=== PATIENT | male | born 1955 | race American Indian/Alaskan Native ===

== ENCOUNTER 2019-04-10 08:43 | Day surgery (SDC) | payer BC, MEDICARE ==
[~2019-04-10] VITALS: Ht 172.7 cm; Wt 90.9 kg
[~2019-04-10 08:43] MED LIST: ALBU90OI INH; AMLO5 PO; Albuterol2.5 MG/0.5 INH; FOLI1 PO; FOLI400 PO; FURO40 PO; Ferrous Sulfat325 M2 PO; Flonase 0.05% N16 GM; GLIP5 PO; Klor-Con 1010 MEQ PO; METF500 PO; METO25 PO; NYST100000 SS; PANT20 PO; POTCHL10ER PO; SODCHL1 PO; Senna Plus Tab1 EACH PO; TRAM50 PO
--- NOTE | 2019-04-10 12:01 | NUR ---
04/10/19 1201 Eva Pineda INSTRUCTIONS GIVEN REUSABLE ICE PACK W/INSTRUCTIONS. DSG C/D/I AND PT TRANSFERS TO AND FROM OWN W/C WITH SBA
== END 2019-04-10 10:55 | disposition home or self-care (01) ==
LOC: ORSCSDS 08:43
PROVIDERS: Podiatrist Foot & Ankle Surgery
PROC: 0HBMXZX Excision of Right Foot Skin, External Approach, Diagnostic (ICD-10-PCS; principal; 2019-04-10 10:00)
DX: D23.71 Other benign neoplasm of skin of right lower limb, including hip (principal); I10 Essential (primary) hypertension; I50.9 Heart failure, unspecified; J44.9 Chronic obstructive pulmonary disease, unspecified; Z87.891 Personal history of nicotine dependence; E11.9 Type 2 diabetes mellitus without complications; Z79.899 Other long term (current) drug therapy
CPT/HCPCS: 82947; 88305; J0690; J2250; J2405; J2704; J3010

== ENCOUNTER → 2020-12-29 | Outpatient (CLI) | payer OTHER ==
[2020-12-29 16:10] LABS: Alanine Aminotransfer (ALT/SGP 42 U/L (12-78); Albumin, Blood 3.2 g/dL (3.4-5.0); Albumin/Globulin Ratio 0.8 (0.8-1.8); Alk Phos 128 U/L (50-136); Anion Gap 6 mmol/L (6-16); Aspartate Aminotrans (AST/SGOT 35 U/L (12-37); Bilirubin, Total 0.5 mg/dL (0.1-1.0); Blood Urea Nitrogen 14 mg/dL (8-24); Bun/Creatinine Ratio 24.1 (12.0-20.0); CO2, Blood 29 mmol/L (21-32); Calcium, Blood 9.5 mg/dL (8.5-10.1); Chloride, Blood 96 mmol/L (98-108); Creatinine, Blood 0.58 mg/dL (0.60-1.20); Globulin, Blood 4.2 g/dL (2.2-4.0); Glomerular Filtration Rate >60 (60-); Glucose, Blood 366 mg/dL (70-99); Potassium, Blood 3.4 mmol/L (3.5-5.5); Sodium, Blood 131 mmol/L (136-145); Total Protein, Blood 7.4 g/dL (6.4-8.2)
== END | disposition home or self-care (01) ==
LOC: LAB 10:25 → LAB SHORT 10:25
PROVIDERS: Family Medicine
DX: E11.9 Type 2 diabetes mellitus without complications (principal)
CPT/HCPCS: 80053; 83036

== ENCOUNTER 2022-08-16 11:53 | Emergency (ER) | payer OTHER ==
[~2022-08-16] VITALS: Ht 172.7 cm; Wt 99.8 kg
[2022-08-16 13:11] LABS: BASOPHILS ABSOLUTE AUTO 0.09 K/mm3 (0.00-0.23); BASOPHILS PERCENT AUTO 1 % (0-2); EOSINOPHILS ABSOLUTE AUTO 1.51 K/mm3 (0.00-0.68); EOSINOPHILS PERCENT AUTO 11 % (0-6); Hematocrit 27.2 % (37.0-53.0); Hemoglobin 7.8 g/dL (13.5-17.5); IMMATURE GRAN ABSOLUTE AUTO 0.07 K/mm3 (0.00-0.10); IMMATURE GRAN PERCENT AUTO 1 % (0-1); LYMPHOCYTES ABSOLUTE AUTO 1.41 K/mm3 (0.84-5.20); LYMPHOCYTES PERCENT AUTO 11 % (21-46); MONOCYTES ABSOLUTE AUTO 1.12 K/mm3 (0.16-1.47); MONOCYTES PERCENT AUTO 8 % (4-13); Mean Corpuscular HGB Conc 28.7 g/dL (31.5-36.5); Mean Corpuscular Volume 73 fL (80-100); Mean Platelet Volume 8.9 fL (9.1-12.4); NEUTROPHILS ABSOLUTE AUTO 9.17 K/mm3 (1.96-9.15); NEUTROPHILS PERCENT AUTO 69 % (41-73); Platelet Count 347 K/mm3 (150-400); RDW Coefficient Variation 17.7 % (11.7-14.2); RDW Standard Deviation 46.8 fL (35.1-46.3); Red Blood Cell Count 3.72 M/mm3 (4.30-5.90); White Blood Cell Count 13.37 K/mm3 (4.00-11.30)
[2022-08-16 13:15] LABS: Albumin, Blood 2.3 g/dL (3.4-5.0); Albumin/Globulin Ratio 0.6 (0.8-1.8); Bilirubin, Total 0.3 mg/dL (0.1-1.0); Bun/Creatinine Ratio 12.2 (12.0-20.0); Calcium, Blood 8.1 mg/dL (8.5-10.1); Creatinine, Blood 0.58 mg/dL (0.60-1.20); Globulin, Blood 3.7 g/dL (2.2-4.0); Magnesium, Blood 1.8 mg/dL (1.6-2.4); Percent Saturation 7.7 % (20.0-50.0); Potassium, Blood 4.2 mmol/L (3.5-5.5)
== END 2022-08-16 18:26 | disposition home or self-care (01) ==
LOC: ER 11:53
PROVIDERS: Physician Assistant
DX: D50.9 Iron deficiency anemia, unspecified (principal); E11.9 Type 2 diabetes mellitus without complications; Z88.5 Allergy status to narcotic agent; Z79.899 Other long term (current) drug therapy; Z79.84 Long term (current) use of oral hypoglycemic drugs; Z87.891 Personal history of nicotine dependence
CPT/HCPCS: 36415; 80053; 82728; 83540; 83550; 83690; 83735; 85025; J2916

== ENCOUNTER 2023-03-12 20:45 | Inpatient (IN) | payer OTHER ==
[~2023-03-12] VITALS: Ht 172.7 cm; Wt 95.0 kg
[2023-03-12 21:43] LABS: BASOPHILS ABSOLUTE AUTO 0.06 K/mm3 (0.00-0.23); BASOPHILS PERCENT AUTO 0 % (0-2); EOSINOPHILS ABSOLUTE AUTO 0.28 K/mm3 (0.00-0.68); EOSINOPHILS PERCENT AUTO 2 % (0-6); Hematocrit 22.7 % (37.0-53.0); IMMATURE GRAN ABSOLUTE AUTO 0.15 K/mm3 (0.00-0.10); IMMATURE GRAN PERCENT AUTO 1 % (0-1); LYMPHOCYTES ABSOLUTE AUTO 1.95 K/mm3 (0.84-5.20); LYMPHOCYTES PERCENT AUTO 10 % (21-46); MONOCYTES ABSOLUTE AUTO 1.85 K/mm3 (0.16-1.47); MONOCYTES PERCENT AUTO 10 % (4-13); Mean Corpuscular HGB 18.2 pg (26.0-34.0); Mean Corpuscular Volume 70 fL (80-100); Mean Platelet Volume 8.8 fL (9.1-12.4); NEUTROPHILS ABSOLUTE AUTO 14.39 K/mm3 (1.96-9.15); NEUTROPHILS PERCENT AUTO 77 % (41-73); NRBC ABSOLUTE 0.05 K/mm3 (0.00-0.02); NRBC Auto 0.3 /100 WBC (0.0-0.2); Platelet Count 352 K/mm3 (150-400); RDW Coefficient Variation 21.4 % (11.7-14.2); RDW Standard Deviation 53.1 fL (35.1-46.3); Red Blood Cell Count 3.24 M/mm3 (4.30-5.90); White Blood Cell Count 18.68 K/mm3 (4.00-11.30)
[2023-03-12 22:01] LABS: Hemoglobin 5.9 g/dL (13.5-17.5)
[2023-03-12 22:02] LABS: Albumin, Blood 1.8 g/dL (3.4-5.0); Albumin/Globulin Ratio 0.5 (0.8-1.8); Bilirubin, Total 0.1 mg/dL (0.1-1.0); Bun/Creatinine Ratio 17.7 (12.0-20.0); Calcium, Blood 7.4 mg/dL (8.5-10.1); Creatinine, Blood 0.45 mg/dL (0.60-1.20); Globulin, Blood 3.6 g/dL (2.2-4.0); Potassium, Blood 4.4 mmol/L (3.5-5.5); Total Protein, Blood 5.4 g/dL (6.4-8.2)
[2023-03-12 23:56] LABS: Source, Urine Clean Catch
[2023-03-13] VITALS (19 sets, daily range): BP systolic 109–139; BP diastolic 46–62
[2023-03-13 00:18] LABS: Bilirubin, Urine Neg (Neg); Blood, Urine Neg (Neg); Glucose Qualitative, Urine Neg (Neg); Ketones, Urine Neg (Neg); Leukocyte Esterase, Urine Neg (Neg); Nitrite, Urine Neg (Neg); Protein, Urine Neg (Neg); Urobilinogen, Urine NORM (Normal)
[2023-03-13 00:25] LABS: Appearance, Urine Clear (Clear); Color, Urine Yellow (P-Yellow)
[2023-03-13 03:31] LABS: IMMATURE RETIC FRACTION 31.6 % (2.3-16.0); RETIC HGB EQUIVALENT 14.8 pg (28.20-36.60); RETICULOCYTE ABSOLUTE 0.1498 M/mm3 (0.0200-0.1100); RETICULOCYTE COUNT PERCENT 4.74 % (0.50-2.50)
[2023-03-13] MEDS ORDERED: GLIMEPIRIDE2 M2 PO (03:31)
--- NOTE | 2023-03-13 06:16 | NUR ---
IV INFILTRATION DURING BLOOD TRANSFUSION BLOOD ISSUED AT 0220. AT 0530 PT C/O PAIN AT IV SITE. TRANSFUSION WAS STOPPED, INFILTRATION WAS ASSESSED. PT IS A DIFFICULT IV STICK, NURSES UNABLE TO START A NEW IV. A POWERGLIDE IS BEING PLACED NOW. 196 TOTAL VOLUME WAS TRANSFUSED, APPROX 180 ML OF THAT WAS BLOOD. REMAINDER OF BLOOD HAS AT 0620 AND IS WILL BE DISPOSED OF. PT HAS ANOTHER UNIT ORDERED, WILL START ONCE POWERGLIDE IS IN.
--- NOTE | 2023-03-13 07:27 | NUR ---
Shift Summary Pt arrived to our unit from ED with dx of severe anemia. He arrived with blood transfusing. The transfusion ended up infiltrating, see my other nurse note for more information. Pt has wound on buttocks which he states is from a fall from a week ago. Per report he has had blood in his stool which he attributes to the wound. Wound is currently not bleeding but there is skin breakdown. A powerglide was placed in CINDY and a new unit of blood is ready, passed info to day shift nurse.
--- NOTE | 2023-03-13 07:35 | NUR ---
ASSUMED CARE OF PT- BBEDSIDE REPORT COMPLETED WITH NIGHT RN. PT IN BED, CALL LIGHT IN REACH NO S&S OF DISTRESS, SPOUSE AT BEDSIDE. PER REPORT IV ACCESS WAS LOST UPON ARRIVAL ONN MEDICAL FLOOR. IIV INFILTRATED WWHILE RUNNING BLOOD. BLOOD WAS DC'D WHILE IV ACCESS WAS REESTABLISHHED. BLOOD WAS DISPOSED OF BY NIGHT RN AT THE TIME OF SHIFT CHANGE. PT HAD LOW BG PRIOR TO SHIFT CHANGE AND WAS GIVEN APPLE JUICE. RECHECK DONE AT THE TIME OF BEDSIDE REPORT. BG IS UP IN THE 80'S AT THIS TIME. WILL CTM. NEW BLOOD SLIP RECIEVED, VERIFIED AND SENT TO LAB, AWAITING THEE UNIT OF BLOOD.
[2023-03-13 08:51] LABS: BASOPHILS ABSOLUTE AUTO 0.04 K/mm3 (0.00-0.23); BASOPHILS PERCENT AUTO 0 % (0-2); EOSINOPHILS ABSOLUTE AUTO 0.27 K/mm3 (0.00-0.68); EOSINOPHILS PERCENT AUTO 2 % (0-6); Hematocrit 21.7 % (37.0-53.0); IMMATURE GRAN ABSOLUTE AUTO 0.12 K/mm3 (0.00-0.10); IMMATURE GRAN PERCENT AUTO 1 % (0-1); LYMPHOCYTES ABSOLUTE AUTO 1.38 K/mm3 (0.84-5.20); LYMPHOCYTES PERCENT AUTO 10 % (21-46); MONOCYTES ABSOLUTE AUTO 1.31 K/mm3 (0.16-1.47); MONOCYTES PERCENT AUTO 9 % (4-13); Mean Corpuscular HGB 19.1 pg (26.0-34.0); Mean Corpuscular HGB Conc 27.2 g/dL (31.5-36.5); Mean Corpuscular Volume 70 fL (80-100); Mean Platelet Volume 8.7 fL (9.1-12.4); NEUTROPHILS PERCENT AUTO 78 % (41-73); NRBC ABSOLUTE 0.06 K/mm3 (0.00-0.02); NRBC Auto 0.4 /100 WBC (0.0-0.2); Platelet Count 347 K/mm3 (150-400); RDW Coefficient Variation 22.7 % (11.7-14.2); RDW Standard Deviation 56.8 fL (35.1-46.3); Red Blood Cell Count 3.09 M/mm3 (4.30-5.90); White Blood Cell Count 14.22 K/mm3 (4.00-11.30)
[2023-03-13 08:53] LABS: Hemoglobin 5.9 g/dL (13.5-17.5)
[2023-03-13 09:22] LABS: Albumin, Blood 1.7 g/dL (3.4-5.0); Albumin/Globulin Ratio 0.5 (0.8-1.8); Bilirubin, Total 0.2 mg/dL (0.1-1.0); Bun/Creatinine Ratio 11.8 (12.0-20.0); Calcium, Blood 7.5 mg/dL (8.5-10.1); Creatinine, Blood 0.51 mg/dL (0.60-1.20); Globulin, Blood 3.3 g/dL (2.2-4.0); Percent Saturation 4.6 % (20.0-50.0); Potassium, Blood 5.1 mmol/L (3.5-5.5)
--- NOTE | 2023-03-13 12:14 | NUR ---
1140 SSUMED CARE OF PATIENT. PT LYING IN BED, DENIES ANY NEEDS. RBC INFUSING VIA RIGHT UPPER ARM POWERGLIDE. PT WITH FAMILY AT BEDSIDE
--- NOTE | 2023-03-13 12:15 | NUR ---
1205 RBC INFUSION COMPLETE
[2023-03-13 12:51] LABS: Hematocrit 21.6 % (37.0-53.0); Hemoglobin 6.2 g/dL (13.5-17.5)
[2023-03-13 13:01] LABS: International Normalized Ratio 1.26; Prothrombin Time Results 13.1 Sec (9.7-11.5)
--- NOTE | 2023-03-13 14:42 | NUR ---
PT LYING IN BED VISITING WITH . PT DENIES PAIN States HE IS HUNGRY AND IS AWARE OF NPO STATUS. REPORT GIVEN TO ALY SYED RN
--- NOTE | 2023-03-13 15:12 | NUR ---
CALLED DR LEDESMA- PT BLOOD TRANSFUSION COMPLETED AT 1200 AND BLOOD DRAW WAS COMPLETED AT 1230. HGB READING NO LONGER CRITICAL BUT HGB IS 6.2. PLANNING TO PLACE THE ORDER FOR 1 MORE UNIT OF PRBC'S. CONSULT FOR GI WAS CALLED BY DR LEDESMA HERSELF SO DOES NOT NEED TO BE CALLED, AWAITING THE NEW ORDERS AT THIS TIME.
[2023-03-13 16:02] LABS: Hematocrit 22.8 % (37.0-53.0); Hemoglobin 6.5 g/dL (13.5-17.5)
--- NOTE | 2023-03-13 18:51 | NUR ---
SHIFT SUMMARY- PT ALERT AND ORIENTED. PT HAS A L AKA. PT IS CURRENTLY RECIEVING THE SECOND UNIT OF BLOOD SINCE THE START OF SHIFT TODAY. PT WAS SEEN BY GI TODAY. THE PLAN IS FOR UPPER AND LOWER SCOPE TOMORROW EVENING. GOLYTELY TO START TONIGHT AT 1900 A FULL GALLON, CONTINUE DRINKING UNTIL GONE. NPO AT NOON TOMORROW. PT CURRENTLY IN BED, CALL LIGHT IN REACH NO S&S OF DISTRESS NOTED, SWITCHED BLOOD TO SALINE FLUSH. UNIT WILL BE DONE TRANSFUSING PRIOR TO NEXT SET OF BLOOD VITALS BEING DUE. PT HAS A CLEAR LIQUID DIET AT THIS TIME. HE SPILLED HIS CHICKEN BROTH THIS EVENING. WILL NEED A LINNEN CHANGE. WILL PASS ON TO NIGHT RN IN BEDSIDE REPORT.
[2023-03-13 21:07] LABS: BASOPHILS ABSOLUTE AUTO 0.04 K/mm3 (0.00-0.23); BASOPHILS PERCENT AUTO 0 % (0-2); EOSINOPHILS ABSOLUTE AUTO 0.21 K/mm3 (0.00-0.68); EOSINOPHILS PERCENT AUTO 2 % (0-6); Hematocrit 26.5 % (37.0-53.0); Hemoglobin 7.7 g/dL (13.5-17.5); IMMATURE GRAN ABSOLUTE AUTO 0.08 K/mm3 (0.00-0.10); IMMATURE GRAN PERCENT AUTO 1 % (0-1); LYMPHOCYTES ABSOLUTE AUTO 1.06 K/mm3 (0.84-5.20); LYMPHOCYTES PERCENT AUTO 9 % (21-46); MONOCYTES ABSOLUTE AUTO 1.64 K/mm3 (0.16-1.47); MONOCYTES PERCENT AUTO 14 % (4-13); Mean Corpuscular HGB 20.6 pg (26.0-34.0); Mean Corpuscular HGB Conc 29.1 g/dL (31.5-36.5); Mean Corpuscular Volume 71 fL (80-100); Mean Platelet Volume 8.6 fL (9.1-12.4); NEUTROPHILS ABSOLUTE AUTO 9.15 K/mm3 (1.96-9.15); NEUTROPHILS PERCENT AUTO 75 % (41-73); NRBC ABSOLUTE 0.04 K/mm3 (0.00-0.02); NRBC Auto 0.3 /100 WBC (0.0-0.2); Platelet Count 326 K/mm3 (150-400); RDW Standard Deviation 55.4 fL (35.1-46.3); Red Blood Cell Count 3.74 M/mm3 (4.30-5.90); White Blood Cell Count 12.18 K/mm3 (4.00-11.30)
[2023-03-14 03:24] VITALS: BP 138/61
--- NOTE | 2023-03-14 05:31 | NUR ---
SHIFT SUMMARY NOC PT A/O X 4. PLEASANT AND COOPERATIVE WITH CARE. PT RECEIVED 2 UNITS PRBC'S AND A PARTIAL THAT INFILTRATED DURING DAY SHIFT. PT HGB IS 7.7 AND HOSPITALIST NOTIFIED AND NO FURTHER TRANSFUSIONS STARTED. PT BEGAN GOLYETLY AROUND 2200 IN PREPARATION FOR UPPER/LOWER ENDOSCOPY PROCEDURES SCHEDULED FOR TODAY. STOOL CONSISTENCY IS TANNISH CLEAR. PT HAS SEVERE EXCORIATION ON BACKSIDE WELL REDNESS IN FELISA AREA, RX POWDER APPLIED. PT WILL BE NPO TODAY AT 1200 BEFORE GI PROCEDURES. PT ON CLEAR LIQUIDS DIET. PT IS CURRENTLY RESTING WITH BED IN LOWEST POSITION, AND CALL LIGHT WITHIN REACH.
[2023-03-14 07:25] VITALS: BP 128/61
[2023-03-14 07:56] LABS: BASOPHILS ABSOLUTE AUTO 0.04 K/mm3 (0.00-0.23); BASOPHILS PERCENT AUTO 0 % (0-2); EOSINOPHILS PERCENT AUTO 3 % (0-6); Hematocrit 25.1 % (37.0-53.0); Hemoglobin 7.4 g/dL (13.5-17.5); IMMATURE GRAN ABSOLUTE AUTO 0.07 K/mm3 (0.00-0.10); IMMATURE GRAN PERCENT AUTO 1 % (0-1); LYMPHOCYTES ABSOLUTE AUTO 1.33 K/mm3 (0.84-5.20); LYMPHOCYTES PERCENT AUTO 13 % (21-46); MONOCYTES ABSOLUTE AUTO 1.53 K/mm3 (0.16-1.47); MONOCYTES PERCENT AUTO 15 % (4-13); Mean Corpuscular HGB 20.8 pg (26.0-34.0); Mean Corpuscular HGB Conc 29.5 g/dL (31.5-36.5); Mean Corpuscular Volume 71 fL (80-100); Mean Platelet Volume 8.7 fL (9.1-12.4); NEUTROPHILS ABSOLUTE AUTO 7.06 K/mm3 (1.96-9.15); NEUTROPHILS PERCENT AUTO 68 % (41-73); NRBC ABSOLUTE 0.03 K/mm3 (0.00-0.02); NRBC Auto 0.3 /100 WBC (0.0-0.2); Platelet Count 305 K/mm3 (150-400); RDW Coefficient Variation 21.6 % (11.7-14.2); RDW Standard Deviation 54.9 fL (35.1-46.3); Red Blood Cell Count 3.56 M/mm3 (4.30-5.90); White Blood Cell Count 10.33 K/mm3 (4.00-11.30)
[2023-03-14 08:15] LABS: Bun/Creatinine Ratio 13.2 (12.0-20.0); Calcium, Blood 7.2 mg/dL (8.5-10.1); Creatinine, Blood 0.53 mg/dL (0.60-1.20); Potassium, Blood 3.9 mmol/L (3.5-5.5)
[2023-03-14 15:53] VITALS: BP 127/57
--- NOTE | 2023-03-14 18:02 | NUR ---
SHIFT SUMMARY- PT IS A/O, PLESANT AND COOPERATIVE. HE WAS NPO THIS SHIFT FOR UPPER AND LOWER SCOPE. PT STOOL WAS NOT CLEAR SO PROCEDURE WAS DELAYED UNTIL TOMORROW. AT BEDSIDE THIS SHIFT. BED IS IN THE LOW POSTION AND CALL LIGHT IS WITIN REACH.
[2023-03-14 19:16] VITALS: BP 146/70
[2023-03-15] VITALS (8 sets, daily range): BP systolic 122–137; BP diastolic 52–69
--- NOTE | 2023-03-15 05:02 | NUR ---
SHIFT SUMMARY NOC PT A/O X 4. PLEASANT AND COOPERATIVE WITH CARE. PT TOOK ANOTHER DOSE OF GOLYTELY FOR GI UPPER/LOWER PROCEDURES SCEDULED FOR TODAY. PT STOOL CLARITY IS IMPROVING. PT STATED THAT HE REALLY WANTS TO BE ABLE TO GO HOME AFTER PROCEDURE THIS EVENING. PT NPO AFTER 0000 PRIOR TO PROCEDURE. PT CBG HS WAS 86 AND CNI PER S/S. NO ACUTE CHANGES TO REPORT. PT IS CURRENTLY RESTING WITH BED IN LOWEST POSITION, AND CALL LIGHT WITHIN REACH.
[2023-03-15 10:07] LABS: Hematocrit 26.4 % (37.0-53.0); Hemoglobin 7.7 g/dL (13.5-17.5)
[2023-03-15 10:27] LABS: Bun/Creatinine Ratio 7.6 (12.0-20.0); Calcium, Blood 7.9 mg/dL (8.5-10.1); Creatinine, Blood 0.53 mg/dL (0.60-1.20); Potassium, Blood 3.9 mmol/L (3.5-5.5)
--- NOTE | 2023-03-15 14:14 | NUR ---
History, Chart, Medications and Allergies reviewed before start of procedure. Pre-Op teaching done. Pt verbalizes understanding. PT LYING IN BED DENYING ANY PAIN OR NAUSEA. SPOUSE AT BEDSIDE.
--- NOTE | 2023-03-15 15:03 | NUR ---
03/15/23 1503 Erasmo Young See Anesthesia record. History, Chart, Medications and Allergies reviewed before start of procedure.MONITOR INTACT WITH CONTINUOUS PULSE OXIMETRY, CONTINUOUS END TITAL CO2, AND INTERMITTENT BLOOD PRESSURE.3-LEAD EKG MONITORED DURING PROCEDURE.O2 VIA POM MASK INTACT THROUGHOUT PROCEDURE. Bite Block Placed/REMOVED AFTER PROCEDURE.
[2023-03-15] MEDS ORDERED: DOCU100 PO (15:42)
--- NOTE | 2023-03-15 16:25 | NUR ---
PATIENT DOWN FOR EGD, TO BE DISCHARGED AFTER RECOVERY, WITH PATIENT IN DAY SURGERY WAIT ROOM
--- NOTE | 2023-03-15 18:26 | NUR ---
NO ACUTE CHANGES, BACK FROM EGD, PATIENT HAS MULTIPLE POLYP THAT WERE REMOVED AND MULTPLE LEFT, ALERT AND ORIENTED, MAKES NEEDS KNOWN, CALL LIGHT WITH IN REACH, TO STAY ANOTHER NIGHT DUE TO MULTIPLE POLYPS REMOVED. PATIENT WAS HYPOTENSIVE IN EGD, BP NORMALIZED 137/69. TOLERATING CLEAR AND FULL, PICTURES AND CONSENT OF BUTTOCKS IN CHART, VERY RED, SHEARING, SUPERFICIAL, SKIN GROWTHS ON THE RIGHT BUTTOCK, WILL RELAY TO PM RN
--- NOTE | 2023-03-16 01:47 | NUR ---
SHIFT SUMMERY, PT RESTING IN BED, PT AVING SOME THROAT PAIN AND GENRELIZED PAIN . PT GIVEN TYLENOL AND A POPSICLE, PT LATTER REPORTED THAT BOTH HAD HELPED. PT GIVEN FELISA CARES AND CHANGED PT HAS REDNESS BETWEEN LEGS FELISA AREA, GROIN AND BACK TO BUTTOCKS, PT ALSO HAS SHEERING INJURIES BILAT BUTTOCKS DRGS APPLYED. PT RESTING IN BED, PT NOT SEEMING TO SLEEP WELL, BUT SEEMED TO SLEEP ON AND OFF DURING THE NIGHT. CALL LIGHT IN REACH
[2023-03-16 03:11] VITALS: BP 136/56
[2023-03-16 05:24] LABS: BASOPHILS ABSOLUTE AUTO 0.03 K/mm3 (0.00-0.23); BASOPHILS PERCENT AUTO 0 % (0-2); EOSINOPHILS ABSOLUTE AUTO 0.39 K/mm3 (0.00-0.68); EOSINOPHILS PERCENT AUTO 4 % (0-6); Hematocrit 24.7 % (37.0-53.0); Hemoglobin 7.3 g/dL (13.5-17.5); IMMATURE GRAN ABSOLUTE AUTO 0.06 K/mm3 (0.00-0.10); IMMATURE GRAN PERCENT AUTO 1 % (0-1); LYMPHOCYTES ABSOLUTE AUTO 0.88 K/mm3 (0.84-5.20); LYMPHOCYTES PERCENT AUTO 9 % (21-46); MONOCYTES ABSOLUTE AUTO 1.08 K/mm3 (0.16-1.47); MONOCYTES PERCENT AUTO 11 % (4-13); Mean Corpuscular HGB 20.7 pg (26.0-34.0); Mean Corpuscular HGB Conc 29.6 g/dL (31.5-36.5); Mean Corpuscular Volume 70 fL (80-100); Mean Platelet Volume 8.3 fL (9.1-12.4); NEUTROPHILS ABSOLUTE AUTO 7.85 K/mm3 (1.96-9.15); NEUTROPHILS PERCENT AUTO 76 % (41-73); Platelet Count 241 K/mm3 (150-400); RDW Coefficient Variation 22.2 % (11.7-14.2); RDW Standard Deviation 54.9 fL (35.1-46.3); Red Blood Cell Count 3.53 M/mm3 (4.30-5.90); White Blood Cell Count 10.29 K/mm3 (4.00-11.30)
[2023-03-16 05:49] LABS: Bun/Creatinine Ratio 9.1 (12.0-20.0); Calcium, Blood 7.4 mg/dL (8.5-10.1); Creatinine, Blood 0.55 mg/dL (0.60-1.20); Potassium, Blood 3.8 mmol/L (3.5-5.5)
[2023-03-16 08:01] VITALS: BP 128/50
[2023-03-16] MEDS ORDERED: PANTOPRAZOLE SO40 M1 PO (08:07)
[2023-03-16] MEDS ORDERED: NYSTATIN15 GM TOP (10:31)
== END 2023-03-16 11:25 | disposition home or self-care (01) | DRG 348 ==
LOC: ER 20:45 → MEDS 20:46
PROVIDERS: Emergency Medicine; Family Medicine; Internal Medicine Gastroenterology; Student in an Organized Health Care Education/Training Program; ADMIT Internal Medicine
PROC: 30233N1 Transfusion of Nonautologous Red Blood Cells into Peripheral Vein, Percutaneous Approach (ICD-10-PCS; 2023-03-13)
PROC: 0DBC8ZZ Excision of Ileocecal Valve, Via Natural or Artificial Opening Endoscopic (ICD-10-PCS; 2023-03-15)
PROC: 0DBH8ZZ Excision of Cecum, Via Natural or Artificial Opening Endoscopic (ICD-10-PCS; 2023-03-15)
PROC: 0W3P8ZZ Control Bleeding in Gastrointestinal Tract, Via Natural or Artificial Opening Endoscopic (ICD-10-PCS; 2023-03-15)
PROC: 0DBE8ZZ Excision of Large Intestine, Via Natural or Artificial Opening Endoscopic (ICD-10-PCS; 2023-03-15)
PROC: 0DBL8ZZ Excision of Transverse Colon, Via Natural or Artificial Opening Endoscopic (ICD-10-PCS; 2023-03-15)
PROC: 0DBN8ZZ Excision of Sigmoid Colon, Via Natural or Artificial Opening Endoscopic (ICD-10-PCS; 2023-03-15)
PROC: 0DBP8ZZ Excision of Rectum, Via Natural or Artificial Opening Endoscopic (ICD-10-PCS; 2023-03-15)
PROC: 0DB98ZX Excision of Duodenum, Via Natural or Artificial Opening Endoscopic, Diagnostic (ICD-10-PCS; principal; 2023-03-15 14:30)
PROC: 0DB78ZX Excision of Stomach, Pylorus, Via Natural or Artificial Opening Endoscopic, Diagnostic (ICD-10-PCS; 2023-03-15 14:30)
DX: K26.9 Duodenal ulcer, unspecified as acute or chronic, without hemorrhage or perforation (principal); E87.1 Hypo-osmolality and hyponatremia; K50.00 Crohn's disease of small intestine without complications; E87.20 Acidosis, unspecified; K29.80 Duodenitis without bleeding; D50.9 Iron deficiency anemia, unspecified; K63.5 Polyp of colon; K57.30 Diverticulosis of large intestine without perforation or abscess without bleeding; K64.8 Other hemorrhoids; D72.829 Elevated white blood cell count, unspecified; F10.129 Alcohol abuse with intoxication, unspecified; E11.649 Type 2 diabetes mellitus with hypoglycemia without coma; L89.159 Pressure ulcer of sacral region, unspecified stage; K20.90 Esophagitis, unspecified without bleeding; D12.6 Benign neoplasm of colon, unspecified; K29.70 Gastritis, unspecified, without bleeding; Z71.41 Alcohol abuse counseling and surveillance of alcoholic; Z89.612 Acquired absence of left leg above knee; Z88.5 Allergy status to narcotic agent; Z79.899 Other long term (current) drug therapy; Z79.01 Long term (current) use of anticoagulants; Z87.09 Personal history of other diseases of the respiratory system; Z86.19 Personal history of other infectious and parasitic diseases; Z98.890 Other specified postprocedural states; Z87.01 Personal history of pneumonia (recurrent); Z87.891 Personal history of nicotine dependence; W18.30XA Fall on same level, unspecified, initial encounter; Z99.3 Dependence on wheelchair
CPT/HCPCS: 36415; 36430; 71045; 76705; 80048; 80053; 81003; 82607; 82728; 82746; 82947; 83540; 83550; 83605; 85014; 85018; 85025; 85045; 85610; 86850; 86900; 86901; 86923; 88305; 88341; 88342; 93005; 93010; 93971; 96360; 96361; 96365; 96375; 99285-25; A9270; C1751; C9113; G0378; G0480; J2370; J2704; J3411; J7030; J7050; J7060; J7120; P9016

== ENCOUNTER → 2025-04-16 | Outpatient (CLI) | payer OTHER ==
[~2025-04-16] MED LIST changes: +DOCU100 PO; +GLIMEPIRIDE2 M2 PO; +NYSTATIN15 GM TOP; +PANTOPRAZOLE SO40 M1 PO
[2025-04-16 15:41] LABS: Creatinine, Urine Random 36.3 mg/dL (27.00-270.00); Microalb/Creat Ratio UR, Rand 2399.45 mg/g (0.000-30.000)
== END ==
LOC: LAB SHORT 11:25 → LAB 11:25
PROVIDERS: Family Medicine
DX: I10 Essential (primary) hypertension (principal)
CPT/HCPCS: 82043; 82570